=== PATIENT | male | born 1980 | race Caucasian/White ===

== ENCOUNTER → 2018-03-10 | Day surgery (SDC) | payer BC ==
[~2018-03-10] MED LIST: Bupivacaine 0.5% 30 ML SDV ONE; Dexamethasone 4 MG/ML 5 ML MDV ONE; Dextrose 5%-Lactated Ringers 1,000 ML IV SCH; HYDROmorphone 0.5 MG/0.5 ML SYRINGE IVPUSH ONE; HYDROmorphone 0.5 MG/0.5 ML Syringe IVPUSH ONE; HYDROmorphone 0.5 MG/0.5 ML Syringe ONE; Lactated Ringers 1,000 ML ONE; Lidocaine 1% 30 ML SDV ONE; Lidocaine 1% 4 ML ONE; Meperidine PF 50 MG/ML Syringe IVPUSH PRN; Metoclopramide 10 MG/2 ML SDV IVPUSH ONE; Midazolam 1 MG/ML 2 ML SDV ONE; Ondansetron 4 MG/2 ML SDV IVPUSH PRN; Ondansetron 4 MG/2 ML SDV ONE; Propofol 200 MG/20 ML SDV ONE; diphenhydrAMINE 50 MG/ML SDV IVPUSH PRN; fentaNYL 100 MCG/2 ML SDV IVPUSH PRN; fentaNYL 250 MCG/5 ML SDV ONE
--- NOTE | 2018-03-10 19:46 | EDM.PDOC ---
ED HPI GENERAL MEDICAL PROBLEM - General Chief Complaint: Abdominal Pain Stated Complaint: STOMACH PAIN Time Seen by Provider: 03/10/18 19:37 Source of Information: Reports: Patient History Limitations: Reports: No Limitations - History of Present Illness INITIAL COMMENTS - FREE TEXT/NARRATIVE: 7-year-old male presents to the ED with diffuse abdominal pain primarily periumbilical. First appreciated discomfort on Wednesday, March 07. Described as a vague discomfort that was mostly periumbilical. States initially he felt pain in the superior aspect of his left lower quadrant around the umbilicus. Over the last 2 days pain seems to have migrated down to the right lower quadrant. These were evident in his right low back as well. He was able to eat up until noon today did not eat supper tonight due to the severity of the pain is worse with standing. It is worse with coughing or sneezing. Pain is felt primarily at the umbilicus and radiates down to the right lower quadrant. Bowel movement has been normal. Urinary function normal. No previous abdominal surgery. Last ate at noon today. Baby had some water about 1600 hrs. today. No associated fever or chills. Pain is constant but does have a colicky component at times. Onset: Gradual Onset Date: 03/07/18 Duration: Day(s):, Getting Worse, Intermittent, Waxing/Waning Location: Reports: Abdomen Quality: Reports: Ache (Mostly periumbilical pain rating down to the right lower quadrant gradually worsening over the last 3 and half days.), Sharp, Stabbing (Radicular pain tends to be sharp and stabbing. Constant diffuse achiness primarily at the superior aspect of the umbilicus.) Severity: Moderate Improves with: Reports: Rest (Not moving.) Worsens with: Reports: Breathing, Other (Breathing deeply), Movement ( coughing or sneezing movement such as standing up or getting up from the lying position ) Context: Denies: Activity, Exercise, Lifting, Sick Contact, Trauma, Other Associated Symptoms: Reports: Loss of Appetite. 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 [No Known Home Meds] 03/10/18 [History] Past Medical History Musculoskeletal History: Reports: Fracture - Past Surgical History Musculoskeletal Surgical History: Reports: ORIF Social & Family History - Tobacco Use Smoking Status *Q: Current Every Day Smoker Years of Tobacco use: 20 Packs/Tins Daily: 0.5 - Alcohol Use Days Per Week of Alcohol Use: 1 Number of Drinks Per Day: 6 Total Drinks Per Week: 6 - Recreational Drug Use Recreational Drug Use: No - Living Situation & Occupation Living situation: Reports: Occupation: Employed (Works in [employer]) ED ROS GENERAL - Review of Systems Review Of Systems: See Below Constitutional: Reports: Decreased Appetite. Denies: Fever, Chills, Malaise, Weakness, Fatigue, Weight Loss HEENT: Reports: No Symptoms Respiratory: Reports: No Symptoms (Hasn't eaten any supper tonight doesn't feel well enough.) Cardiovascular: Reports: No Symptoms Endocrine: Reports: No Symptoms GI/Abdominal: Reports: Abdominal Pain : Reports: No Symptoms Musculoskeletal: Reports: No Symptoms Skin: Reports: No Symptoms Neurological: Reports: No Symptoms Psychiatric: Reports: No Symptoms Hematologic/Lymphatic: Reports: No Symptoms Immunologic: Reports: No Symptoms ED EXAM, GI/ABD - Physical Exam Exam: See Below Exam Limited By: No Limitations General Appearance: Alert, WD/WN, Mild Distress Eyes: Bilateral: Normal Appearance Ears: Normal External Exam Nose: Normal Inspection Throat/Mouth: Normal Inspection, Normal Lips, Normal Teeth, Normal Oropharynx Head: Atraumatic, Normocephalic Neck: Normal Inspection, Supple, Non-Tender, Full Range of Motion. No: Lymphadenopathy (L), Lymphadenopathy (R) Respiratory/Chest: No Respiratory Distress, Lungs Clear, Normal Breath Sounds, No Accessory Muscle Use Cardiovascular: Normal Peripheral Pulses, Regular Rate, Rhythm, No Edema, No Gallop, No Murmur GI/Abdominal Exam: Soft, Non-Tender, No Organomegaly, Guarding (Mild guarding right lower quadrant on deep palpation.), Tender (Tenderness at the umbilicus with a palpable hernia. This appears to be the source of maximal tenderness in his abdomen.), Abnormal Bowel Sounds (Slightly hyperactive bowel sounds throughout some are high pitched.), Other (Does have a positive Rovsing sign.). No: Rebound (Male) Exam: Other (No inguinal hernias.) Back Exam: Normal Inspection, Full Range of Motion. No: CVA Tenderness (L), CVA Tenderness (R) Extremities: Normal Inspection, Normal Range of Motion, Non-Tender, No Pedal Edema Neurological: Alert, Oriented, CN II-XII Intact, Normal Cognition Psychiatric: Normal Affect, Normal Mood Skin Exam: Warm, Dry, Intact, Normal Color, No Rash Course - Vital Signs Last Recorded V/S: Last Vital Signs Temp 37.0 C 03/10/18 19:15 Pulse 71 03/10/18 19:15 Resp 16 03/10/18 21:10 BP 155/90 H 03/10/18 21:10 Pulse Ox 97 03/10/18 21:10 - Orders/Labs/Meds Orders: Active Orders 24 hr Category Date Time Status Patient Status [ADT] Routine ADT 03/10/18 20:49 Active Verify Patient Consent Obtain [RC] ASDIRECTED Care 03/10/18 21:07 Active Dextrose 5%-Lactated Ringers 1,000 ml Med 03/10/18 20:00 Active IV ASDIRECTED Schedule Procedure [COMM] Stat Oth 03/10/18 20:49 Ordered Medication Orders Dextrose/Lactated Ringer's (Dextrose 5%-Lactated Ringers) 1,000 mls @ 150 mls/ hr IV ASDIRECTED [facility] Last Admin: 03/10/18 20:03 Dose: 150 mls/hr Labs: Laboratory Tests 03/10/18 03/10/18 03/10/18 Range/Units 20:00 20:00 20:00 WBC 9.07 (4.23-9.07) K/mm3 RBC 5.43 (4.63-6.08) M/mm3 Hgb 16.3 (13.7-17.5) gm/L Hct 45.5 (40.1-51.0) % MCV 83.8 (79.0-92.2) fl MCH 30.0 (25.7-32.2) pg MCHC 35.8 H (32.2-35.5) g/dl RDW Std Deviation 37.9 (35.1-43.9) fL Plt Count 203 (163-337) K/mm3 MPV 9.4 (9.4-12.3) fl Neutrophils % (Manual) 61 H (40-60) % Band Neutrophils % 0 (0-10) % Lymphocytes % (Manual) 34 (20-40) % Atypical Lymphs % 0 % Monocytes % (Manual) 2 (2-10) % Eosinophils % (Manual) 2 (0.8-7.0) % Basophils % (Manual) 1 (0.2-1.2) Platelet Estimate Adequate Plt Morphology Comment Normal RBC Morph Comment Normal Sodium 139 (136-145) mEq/L Potassium 3.8 (3.5-5.1) mEq/L Chloride 101 (98-107) mEq/L Carbon Dioxide 25 (21-32) mEq/L Anion Gap 16.8 H (5-15) BUN 15 (7-18) mg/dL Creatinine 1.0 (0.7-1.3) mg/dL Est Cr Clr Drug Dosing 93.64 mL/min Estimated GFR (MDRD) > 60 (>60) mL/min BUN/Creatinine Ratio 15.0 (14-18) Glucose 111 H (74-106) mg/dL Lactic Acid (0.4-2.0) mmol/L Calcium 9.6 (8.5-10.1) mg/dL Total Bilirubin 0.6 (0.2-1.0) mg/dL AST 32 (15-37) U/L ALT 54 (16-63) U/L Alkaline Phosphatase 69 (46-116) U/L C-Reactive Protein 1.5 H* (<1.0) mg/dL Total Protein 8.0 (6.4-8.2) g/dl Albumin 4.2 (3.4-5.0) g/dl Globulin 3.8 gm/dL Albumin/Globulin Ratio 1.1 (1-2) Lipase 180 (73-393) U/L 03/10/18 Range/Units 20:20 WBC (4.23-9.07) K/mm3 RBC (4.63-6.08) M/mm3 Hgb (13.7-17.5) gm/L Hct (40.1-51.0) % MCV (79.0-92.2) fl MCH (25.7-32.2) pg MCHC (32.2-35.5) g/dl RDW Std Deviation (35.1-43.9) fL Plt Count (163-337) K/mm3 MPV (9.4-12.3) fl Neutrophils % (Manual) (40-60) % Band Neutrophils % (0-10) % Lymphocytes % (Manual) (20-40) % Atypical Lymphs % % Monocytes % (Manual) (2-10) % Eosinophils % (Manual) (0.8-7.0) % Basophils % (Manual) (0.2-1.2) Platelet Estimate Plt Morphology Comment RBC Morph Comment Sodium (136-145) mEq/L Potassium (3.5-5.1) mEq/L Chloride (98-107) mEq/L Carbon Dioxide (21-32) mEq/L Anion Gap (5-15) BUN (7-18) mg/dL Creatinine (0.7-1.3) mg/dL Est Cr Clr Drug Dosing mL/min Estimated GFR (MDRD) (>60) mL/min BUN/Creatinine Ratio (14-18) Glucose (74-106) mg/dL Lactic Acid 0.7 (0.4-2.0) mmol/L Calcium (8.5-10.1) mg/dL Total Bilirubin (0.2-1.0) mg/dL AST (15-37) U/L ALT (16-63) U/L Alkaline Phosphatase (46-116) U/L C-Reactive Protein (<1.0) mg/dL Total Protein (6.4-8.2) g/dl Albumin (3.4-5.0) g/dl Globulin gm/dL Albumin/Globulin Ratio (1-2) Lipase (73-393) U/L Meds: Medications Generic Name Dose Route Start Last Admin Trade Name Freq PRN Reason Stop Dose Admin Dextrose/Lactated Ringer's 1,000 mls @ 150 mls/hr 03/10/18 20:00 03/10/18 20: 03 Dextrose 5%-Lactated Ringers IV 150 mls/hr ASDIRECTED DERICK Administration Discontinued Medications Generic Name Dose Route Start Last Admin Trade Name Freq PRN Reason Stop Dose Admin Bupivacaine HCl Confirm 03/10/18 21:14 Marcaine 0.5% Administered 03/10/18 21:15 Dose 30 ml .ROUTE .STK-MED ONE Dexamethasone Confirm 03/10/18 21:18 Dexamethasone Administered 03/10/18 21:19 Dose 20 mg .ROUTE .STK-MED ONE Fentanyl Confirm 03/10/18 21:15 Sublimaze Administered 03/10/18 21:16 Dose 250 mcg .ROUTE .STK-MED ONE Hydromorphone HCl 0.5 mg 03/10/18 19:46 03/10/18 20:03 Dilaudid IVPUSH 03/10/18 19:47 0.5 mg ONETIME ONE Administration Lidocaine HCl Confirm 03/10/18 21:18 Xylocaine-Mpf 1% Administered 03/10/18 21:19 Dose 4 mls @ as directed .ROUTE .STK-MED ONE Lidocaine HCl Confirm 03/10/18 21:14 Xylocaine-Mpf 1% Administered 03/10/18 21:15 Dose 30 ml .ROUTE .STK-MED ONE Metoclopramide HCl 10 mg 03/10/18 19:47 03/10/18 20:04 Reglan IVPUSH 03/10/18 19:48 10 mg ONETIME ONE Administration Midazolam HCl Confirm 03/10/18 21:15 Versed 1 Mg/Ml Administered 03/10/18 21:16 Dose 2 mg .ROUTE .STK-MED ONE Ondansetron HCl Confirm 03/10/18 21:18 Zofran Administered 03/10/18 21:19 Dose 4 mg .ROUTE .STK-MED ONE Propofol Confirm 03/10/18 21:15 Diprivan 20 Ml Administered 03/10/18 21:16 Dose 200 mg .ROUTE .STK-MED ONE - Radiology Interpretation Free Text/Narrative:: 37-year-old male presents to the ED with gradually worsening periumbilical pain over the last 3-1/2 days. Pain started just above and to the left of his umbilicus on March 07. Over time it seemed to center at the umbilicus and then subsequently has radiated down to the right lower quadrant over the last 2 days. Pain rating of the right lower quadrant is to be sharp and stabbing. No associated fever chills. Pain is worsened by moving sneezing coughing or standing up. Pain is centered at the umbilicus. Examination reveals an increased amount of superior umbilical hernia that is very tender to touch. It is only the size of a quarter. Of incarcerated omentum or tissue within this. He also has pain however on deep palpation in the right lower quadrant with a positive Rovsing sign. This may be due to omentum stuck in the umbilicus. The possibility of appendicitis does exist as well. Plan IV D5 Ringer's lactate at 150 mils per hour. Given Dilaudid 0.5 mg IV and Reglan 10 mg IV for pain relief. Routine labs to be performed including a lipase. CRP and lactic acid as well. CT of the abdomen will be done per renal protocol as this will reveal incarceration of umbilical hernia. I will likely get a good look at his appendix without contrast as well. - Re-Assessments/Exams Free Text/Narrative Re-Assessment/Exam: 03/10/18 20:25: CT of the abdomen shows liver gallbladder to be normal pancreas normal spleen normal. Fair amount of stool throughout the colon. Appendix is well-visualized and is normal in the right lower quadrant. There is a hazy infiltrate representing fatty infiltration in the umbilicus compatible with omentum in the umbilical hernia. No other pathology identified in the abdomen or pelvis. Labs have just been drawn and he has just received analgesia. I will discuss case with conflicts analyst surgeon bhupinderis is day 4 of illness. Omentum is obviously incarcerated. He has not eaten since noon. 03/10/18 20:47 case discussed with on-call surgeon Dr. Eloy Ortiz and he will see the patient in the ED with a view to taking him to the OR for definitive surgical management. Departure - Departure Time of Disposition: 21:28 Disposition: DC/Tfer to [facility] Access [facility] Condition: Fair Clinical Impression: Incarcerated umbilical hernia - Discharge Information - My Orders Last 24 Hours: My Active Orders 03/10/18 20:00 Dextrose 5%-Lactated Ringers 1,000 ml IV ASDIRECTED - Assessment/Plan Last 24 Hours: My Active Orders 03/10/18 20:00 Dextrose 5%-Lactated Ringers 1,000 ml IV ASDIRECTED
--- NOTE | 2018-03-10 20:36 | CT ---
CT abdomen and pelvis Technique: Multiple axial sections were obtained from above the dome of the diaphragm inferiorly through the pubic symphysis. Intravenous and oral contrast was not utilized. Comparison: No prior abdominal or pelvic CT exam, previous abdominal ultrasound of the right upper quadrant dated 04/17/11 is available. Findings: Visualized lung bases shows nothing acute. Noncontrast appearance of the liver and spleen appear within normal limits. Adrenal glands show no nodule. Pancreas appears within normal limits. Gallbladder contains no calcified gallstones. Kidneys show no abnormal calcifications. No ureteral dilatation is seen. No ureteral calcifications are seen. Appendix is seen and appears normal. No bowel dilatation is seen. No pelvic mass or adenopathy is seen. Small fat-containing umbilical hernia is seen. There is slight inflammatory change seen within and around this hernia with no bowel is seen to extend into the hernia. No free fluid is seen. No other inflammatory change is seen. Bone window settings were reviewed which shows mild scattered degenerative change within the spine. Impression: 1. Small fat-containing umbilical hernia with mild inflammatory change around and within this hernia. 2. No ureteral calculus or renal calculi are seen. 3. Other incidental findings as noted above. Diagnostic code #3
--- NOTE | 2018-03-10 21:06 | PCM.PREANE ---
Preanesthetic Assessment - Procedure Proposed Procedure: Incarcerated umbilical hernia repair - Anesthesia/Transfusion/Family Hx Anesthesia History: Prior Anesthesia Without Reaction Family History of Anesthesia Reaction: No Transfusion History: No Prior Transfusion(s) - Review of Systems General: No Symptoms Pulmonary: No Symptoms Cardiovascular: No Symptoms Gastrointestinal: No Symptoms Neurological: No Symptoms Other: Reports: Liver Problems (fatty liver disease a couple years ago ) - Physical Assessment NPO Status Date: 03/10/18 NPO Status Time: 13:00 O2 Sat by Pulse Oximetry: 97 Respiratory Rate: 16 Blood Pressure: 155/90 Vital Signs: Last Vital Signs Temp 37.0 C 03/10/18 19:15 Pulse 71 03/10/18 19:15 Resp 16 03/10/18 19:15 BP 190/120 H 03/10/18 19:15 Pulse Ox 97 03/10/18 19:15 Height: 1.7 m Weight: 95.254 kg ASA Class: 2 Mental Status: Alert & Oriented x3 Airway Class: Mallampati = 2 Dentition: Reports: Normal Dentition Thyro-Mental Finger Breadths: 3 Mouth Opening Finger Breadths: 3 ROM/Head Extension: Full Lungs: Clear to Auscultation, Normal Respiratory Effort Cardiovascular: Regular Rate, Regular Rhythm - Lab Values: Laboratory Last Values WBC 9.07 K/mm3 (4.23-9.07) 03/10/18 20:00 RBC 5.43 M/mm3 (4.63-6.08) 03/10/18 20:00 Hgb 16.3 gm/L (13.7-17.5) 03/10/18 20:00 Hct 45.5 % (40.1-51.0) 03/10/18 20:00 MCV 83.8 fl (79.0-92.2) 03/10/18 20:00 MCH 30.0 pg (25.7-32.2) 03/10/18 20:00 MCHC 35.8 g/dl (32.2-35.5) H 03/10/18 20:00 RDW Std Deviation 37.9 fL (35.1-43.9) 03/10/18 20:00 Plt Count 203 K/mm3 (163-337) 03/10/18 20:00 MPV 9.4 fl (9.4-12.3) 03/10/18 20:00 Neutrophils % (Manual) 61 % (40-60) H 03/10/18 20:00 Band Neutrophils % 0 % (0-10) 03/10/18 20:00 Lymphocytes % (Manual) 34 % (20-40) 03/10/18 20:00 Atypical Lymphs % 0 % 03/10/18 20:00 Monocytes % (Manual) 2 % (2-10) 03/10/18 20:00 Eosinophils % (Manual) 2 % (0.8-7.0) 03/10/18 20:00 Basophils % (Manual) 1 (0.2-1.2) 03/10/18 20:00 Platelet Estimate Adequate 03/10/18 20:00 Plt Morphology Comment Normal 03/10/18 20:00 RBC Morph Comment Normal 03/10/18 20:00 Lactic Acid 0.7 mmol/L (0.4-2.0) 03/10/18 20:20 - Allergies Allergies/Adverse Reactions: Allergies Allergy/AdvReac Type Severity Reaction Status Date / Time No Known Allergies Allergy Verified 03/10/18 19:15 - Blood Blood Available: No Product(s) Available: None - Anesthesia Plan Pre-Op Medication Ordered: None - Acknowledgements Anesthesia Type Planned: General Anesthesia Pt an Appropriate Candidate for the Planned Anesthesia: Yes Alternatives and Risks of Anesthesia Discussed w Pt/Guardian: Yes Pt/Guardian Understands and Agrees with Anesthesia Plan: Yes PreAnesthesia Questionnaire Musculoskeletal History: Reports: Fracture - Past Surgical History Musculoskeletal Surgical History: Reports: ORIF - SUBSTANCE USE Smoking Status *Q: Current Every Day Smoker Tobacco Use Within Last Twelve Months: Cigarettes Days Per Week of Alcohol Use: 1 Number of Drinks Per Day: 6 Total Drinks Per Week: 6 Recreational Drug Use History: No - HOME MEDS Home Medications: Home Meds . [No Known Home Meds] 03/10/18 [History] - CURRENT (IN HOUSE) MEDS Current Meds: Current Medications Dextrose/Lactated Ringer's (Dextrose 5%-Lactated Ringers) 1,000 mls @ 150 mls/ hr IV ASDIRECTED DERICK Last Admin: 03/10/18 20:03 Dose: 150 mls/hr Discontinued Medications Hydromorphone HCl (Dilaudid) 0.5 mg IVPUSH ONETIME ONE Stop: 03/10/18 19:47 Last Admin: 03/10/18 20:03 Dose: 0.5 mg Metoclopramide HCl (Reglan) 10 mg IVPUSH ONETIME ONE Stop: 03/10/18 19:48 Last Admin: 03/10/18 20:04 Dose: 10 mg
--- NOTE | 2018-03-10 22:34 | HP ---
DATE OF ADMISSION: 03/10/2018 HISTORY OF PRESENT ILLNESS: This is a 37-year-old male presented with abdominal pain in the periumbilical area. This started on Wednesday, vague discomfort and just continued to escalate until the pain. There is no tenderness in the area. CT scan was done showing incarcerated umbilical hernia with fat. PAST MEDICAL HISTORY: Good health. PAST SURGICAL HISTORY: ORIF. CURRENT MEDICATIONS: None. SOCIAL HISTORY: Current everyday smoker. Alcohol occasionally. REVIEW OF SYSTEMS: No chest pain, shortness of breath, cough, hoarseness, wheezing, fainting, weakness, numbness, or convulsions. FAMILY HISTORY: Negative. PHYSICAL EXAMINATION: VITAL SIGNS: Reveals a temperature 37, pulse 71, respirations 16, and blood pressure 190/120. EYES: Sclerae white. Extraocular muscle motion normal. ORAL CAVITY: Healthy mucous membrane with mouth and tongue. NECK: Supple. No nodes. No thyromegaly. Trachea midline. LUNGS: Clear. No rales, rhonchi, fremitus, or dullness. HEART: Heart tones regular rate. No S3, S4, jugular venous distention, or murmur. ABDOMEN: Shows tenderness and guarding and slight redness around the periumbilical area with an incarcerated umbilical hernia. Inguinal regions unremarkable. EXTREMITIES: Upper and lower extremities, no angulation deformities. SKIN: Warm and dry. PSYCHIATRIC: Normal. NEUROLOGIC: Cranial nerves 3 through 12 intact. No sensorineural deficit. ASSESSMENT: Incarcerated umbilical hernia. PLAN: For urgent repair. Discussed the procedure, risks, and complications. He understands and consents. MMODAL /[id number]
--- NOTE | 2018-03-10 22:40 | PCM.OPNOTE ---
- General Post-Op/Procedure Note Date of Surgery/Procedure: 03/10/18 Operative Procedure(s): repair of umbilical hernia incarcerated Pre Op Diagnosis: incacerated umbilical hernia Post-Op Diagnosis: Same Anesthesia Technique: General ET Tube, General LMA Primary Surgeon: Eloy Heredia EBL in mLs: 5 Complications: None Condition: Good
--- NOTE | 2018-03-10 22:45 | PCM.POSTAN ---
POST ANESTHESIA ASSESSMENT - MENTAL STATUS Mental Status: Somnolent - VITAL SIGNS Pulse Rate: 79 SaO2: 92 Resp Rate: 12 Blood Pressure: 98/58 Temperature: 37.4 C - RESPIRATORY Respiratory Status: Respiratory Rate WNL, Airway Patent, O2 Saturation Stable, Supplemental Oxygen - CARDIOVASCULAR CV Status: Pulse Rate WNL, Blood Pressure Stable - GASTROINTESTINAL GI Status: No Symptoms - PAIN Pain Score: 0 - POST OP HYDRATION Hydration Status: Adequate & Stable
--- NOTE | 2018-03-10 23:05 | PCM48HPAN ---
Post Anesthesia Note - EVALUATION WITHIN 48HRS OF ANESTHETIC Vital Signs in Normal Range: Yes Patient Participated in Evaluation: Yes Respiratory Function Stable: Yes Airway Patent: Yes Cardiovascular Function Stable: Yes Hydration Status Stable: Yes Pain Control Satisfactory: Yes Nausea and Vomiting Control Satisfactory: Yes Mental Status Recovered: Yes
--- NOTE | 2018-03-11 07:51 | OR ---
DATE OF OPERATION: 03/10/2018 SURGEON: Eloy Heredia MD ADDENDUM: ESTIMATED BLOOD LOSS: 5 mL. MMODAL /[id number]
--- NOTE | 2018-03-11 07:51 | OR ---
DATE OF OPERATION: 03/10/2018 SURGEON: Eloy Heredia MD PREOPERATIVE DIAGNOSIS: Incarcerated umbilical hernia. POSTOPERATIVE DIAGNOSIS: Incarcerated umbilical hernia. OPERATION PERFORMED: Repair under general anesthetic with [id number] technique. FINDINGS: A 1.5 cm incarcerated umbilical hernia. The incarcerated material was a preperitoneal fat. DESCRIPTION OF PROCEDURE: The patient taken to the operating room, placed in a supine position, given general anesthetic, and LMA was placed. The abdomen was clipped, prepped with chlorhexidine and alcohol prep, and draped off in a sterile fashion. 1% Xylocaine and 0.5% Marcaine infiltrated in the skin just below the umbilicus. Curvilinear incision was made and dissection was carried down to the fascia and the umbilicus was taken off the hernia, which consisted of fat. This was dissected out from around the defect in the fascia and then inverted. Bleeding points were controlled with electrocautery. A [id number] repair was then accomplished using 0 Ethibond sutures placed and then tied and then the another layer of suture was placed on the edge of the pants. The umbilicus was then sutured down to the repair with 3-0 Vicryl suture and subcuticular tissue was closed with interrupted 3-0 Vicryl suture. The skin was then brought together with subdermal 4-0 Dexon suture. Steri-Strips and sterile dressing placed. The patient tolerated the procedure and sent to recovery room in a stable condition. ANESTHESIA: ESTIMATED BLOOD LOSS: MMODAL /[id number]
== END | disposition home or self-care (01) ==
LOC: JD.ED 19:05 → JD.SDS 20:57
PROVIDERS: ATTEND Surgery
DX: K42.0 Umbilical hernia with obstruction, without gangrene (principal); F17.210 Nicotine dependence, cigarettes, uncomplicated; Z98.890 Other specified postprocedural states
CPT/HCPCS: 00752; 36415; 74176; 74176-26; 80053; 83605; 83690; 85007; 85027; 86140; 96361; 96374; 96375; 99285-25; J1100; J1170; J2001; J2250; J2405; J2704; J2765; J3010; J7042; J7120